=== PATIENT | female | born 1985 | race Caucasian/White ===

== ENCOUNTER 2018-10-27 15:53 | Emergency (ER) | payer BC ==
[2018-10-27 16:00] VITALS: BP 121/77
--- NOTE | 2018-10-27 16:01 | UC ---
Skin Complaint HPI - HPI Summary HPI Summary: 33 yo female presents with skin lesions to LEFT calf noticed about 1.5 weeks ago. Circular in appearance. Mildly itchy. She works at [employer] and is sweaty and on gym mats often. She has been applying bactroban ointment with no relief. Denies fever or chills. - History of Current Complaint Chief Complaint: UCSkin Stated Complaint: SKIN COMPLAINT Hx Obtained From: Patient Hx Last Menstrual Period: sep 22,m 2017 Onset/Duration: Gradual Onset Current Severity: None Pain Intensity: 0 - Allergy/Home Medications Allergies/Adverse Reactions: Allergies Allergy/AdvReac Type Severity Reaction Status Date / Time amoxicillin Allergy Intermediate Rash Verified 10/27/18 16:00 PMH/Surg Hx/FS Hx/Imm Hx Respiratory History: Asthma - Surgical History Surgical History: None Surgery Procedure, Year, and Place: T&A - Family History Known Family History: Positive: Non-Contributory - Social History Occupation: Employed Full-time Lives: With Family Alcohol Use: Occasionally Substance Use Type: Marijuana Smoking Status (MU): Never Smoked Tobacco Review of Systems All Other Systems Reviewed And Are Negative: Yes Constitutional: Positive: Negative Skin: Positive: Other - Rash left calf Respiratory: Positive: Negative Cardiovascular: Positive: Negative Neurovascular: Positive: Negative Neurological: Positive: Negative Psychological: Positive: Negative Physical Exam - Summary Physical Exam Summary: GENERAL: NAD. WDWN. No pain distress. SKIN: LEFT CALF: 1.0cm diameter circular erythematous lesion with scaly borders. No open wound, drainage, streaking, warmth, or edema. NECK: Supple. Nontender. No lymphadenopathy. CHEST: No accessory muscle use. Breathing comfortably and in no distress. CV: Pulses intact. Cap refill <2seconds NEURO: Alert. PSYCH: Age appropriate behavior. Triage Information Reviewed: Yes Vital Signs: Initial Vital Signs Temp 98.8 F 10/27/18 15:56 Pulse 89 10/27/18 15:56 Resp 18 10/27/18 15:56 BP 121/77 10/27/18 15:56 Pulse Ox 100 10/27/18 15:56 Vital Signs Reviewed: Yes Course/Dx - Course Course Of Treatment: Suspect tinea infection. Rx for ketaconazole cream. - Diagnoses Provider Diagnosis: Ringworm Discharge - Sign-Out/Discharge Documenting (check all that apply): Patient Departure All imaging exams completed and their final reports reviewed: No Studies - Discharge Plan Condition: Stable Disposition: HOME Prescriptions: Ketoconazole 2 % CREAM (NF) [Nizoral 2% CREAM (NF)] 1 applic TOPICAL BID #1 tube Patient Education Materials: Tinea Corporis (ED), Tinea Versicolor (ED) Referrals: Heather Fish MD [Primary Care Provider] - Additional Instructions: If you develop a fever, shortness of breath, chest pain, new or worsening symptoms - please call your PCP or go to the ED. - Billing Disposition and Condition Condition: STABLE Disposition: Home
== END 2018-10-27 16:10 | disposition home or self-care (01) ==
LOC: UCEAST 15:53
DX: B35.4 Tinea corporis (principal); Z88.0 Allergy status to penicillin
CPT/HCPCS: 99212; G0463